=== PATIENT | female | born 1955 | race American Indian/Alaskan Native ===

== ENCOUNTER 2021-12-27 22:00 | Emergency (ER) | payer MEDICARE ==
--- NOTE | 2021-12-28 00:36 | Emergency Department Report ---
ED Psych HPI - General Chief Complaint: Psych Stated Complaint: HEALTH EVAL Time Seen by Provider: 12/27/21 23:23 Source: patient, EMS Mode of arrival: Stretcher - History of Present Illness Initial Comments: Patient is a 66-year-old female presenting to ED with complaint of auditory and visual hallucinations. Denies SI or HI. - Related Data Allergies Allergy/AdvReac Type Severity Reaction Status Date / Time No Known Allergies Allergy Unverified 12/27/21 23:34 ED Review of Systems ROS: Stated complaint: HEALTH EVAL Other details as noted in HPI Constitutional: denies: chills, fever Respiratory: denies: cough, shortness of breath, wheezing Cardiovascular: denies: chest pain, palpitations Endocrine: no symptoms reported Gastrointestinal: denies: abdominal pain, nausea, diarrhea Musculoskeletal: denies: back pain, joint swelling, arthralgia Skin: denies: rash, lesions Neurological: denies: headache, weakness, paresthesias Psychiatric: denies: anxiety, depression ED Past Medical Hx - Past Medical History Previous Medical History?: Yes Hx Psychiatric Treatment: Yes - Surgical History Past Surgical History?: No - Social History Smoking Status: Never Smoker Substance Use Type: None ED Physical Exam - General Limitations: No Limitations General appearance: alert, in no apparent distress - Head Head exam: Present: atraumatic, normocephalic - Respiratory Respiratory exam: Present: normal lung sounds bilaterally. Absent: respiratory distress - Cardiovascular Cardiovascular Exam: Present: regular rate, normal rhythm, normal heart sounds - GI/Abdominal GI/Abdominal exam: Present: soft. Absent: distended, tenderness - Rectal Rectal exam: Present: deferred - Neurological Exam Neurological exam: Present: alert, oriented X3 - Psychiatric Psychiatric exam: Present: normal mood. Absent: normal affect - Skin Skin exam: Present: warm, dry, intact, normal color ED Course Vital Signs 12/27/21 12/27/21 12/28/21 22:00 23:41 04:58 Temperature 98.7 F Pulse Rate 80 103 H Respiratory 18 16 Rate Blood Pressure 132/92 Blood Pressure 136/79 [Right] O2 Sat by Pulse 99 97 95 Oximetry ED Medical Decision Making - Lab Data Result diagrams: 12/28/21 02:21 12/28/21 02:21 - Medical Decision Making Labs reviewed. No major abnormalities noted. Will obtain mental health assessment in the morning. Critical care attestation.: If time is entered above; I have spent that time in minutes in the direct care of this critically ill patient, excluding procedure time. ED Disposition Clinical Impression: Hallucinations, visual, Auditory hallucinations Disposition: 30 STILL A PATIENT Is pt being admited?: No Condition: Stable
[2021-12-28 02:49] LABS: Eosinophils % (Auto) 0.1 % (0.0-4.3); Monocytes # (Auto) 0.7 K/mm3 (0.0-0.8); Monocytes % (Auto) 6.4 % (0.0-7.3)
[2021-12-28 03:05] LABS: Alanine Aminotransferase 18 units/L (7-56); Albumin 4.4 g/dL (3.9-5); BUN/Creatinine Ratio 13; Basophils % (Auto) 0.3 % (0.0-1.8); Blood Urea Nitrogen 10 mg/dL (7-17); Calcium 9.4 mg/dL (8.4-10.2); Hemolysis Index 24; Lymphocytes # (Auto) 1.5 K/mm3 (1.2-5.4); Lymphocytes % (Auto) 13.2 % (13.4-35.0); Mean Corpuscular HGB Conc 31 % (30-34); Mean Corpuscular Volume 61 fl (79-97); Platelet Count 61 K/mm3 (140-440); Red Blood Count 5.94 M/mm3 (3.65-5.03)
--- NOTE | 2021-12-28 09:13 | Consultation ---
History of Present Illness - Reason for Consult Consult date: 12/28/21 Reason for consult: psychisis - History of Present Psychiatric Illness The patient is a 66y/o female who presented to the ER for auditory and visual hallucinations. During my evaluation, the patient is lying on the floor staring at the ceiling. She is responding to internal stimuli. She does not acknowledge me. I start calling her name and asking her to get off the floor and go to a chair. The patient then starts shaking her head back and forth. I ask staff to come and get the patient off the floor. She starts hitting the floor with her fist yelling, "mother fuer" over and over. She would not respond to any questions. She also would not allow staff to remove her off the floor. REVIEW OF SYSTEMS Unable to assess MENTAL STATUS EXAMINATION Unable to assess ASSESSMENT: Delusional Disorder TREATMENT: 1013 Risperidone 0.25mg po BID Melatonin 5mg po qhs prn insomnia Geodon 10mg q4h prn agitation Risks, benefits and alternatives of medications discussed with the patient, questions answered and consent obtained from patient. PSYCHOTHERAPY: Supportive psychotherapy provided MEDICAL: Per primary team DELIRIUM PRECAUTIONS: Please re-orient patient frequently, keep lights on during the day, and minimize benzodiazepines and opiates as these medications could worsen patient's confusion. 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 FOLLOW-UP: Will follow Case staffed with Dr. Noé Graves Medications and Allergies Allergies Allergy/AdvReac Type Severity Reaction Status Date / Time No Known Allergies Allergy Unverified 12/27/21 23:34 Mental Status Exam - Vital signs Last Vital Signs Temp 98.7 F 12/27/21 22:00 Pulse 103 H 12/28/21 04:58 Resp 16 12/28/21 04:58 BP 136/79 12/28/21 04:58 Pulse Ox 95 12/28/21 04:58 Results Result Diagrams: 12/28/21 02:21 12/28/21 02:21 Abnormal lab results 12/28/21 12/28/21 12/28/21 Range/Units 02:21 02:21 02:21 RBC 5.94 H (3.65-5.03) M/mm3 MCV 61 L (79-97) fl MCH 19 L (28-32) pg RDW 18.0 H (13.2-15.2) % Plt Count 61 L (140-440) K/mm3 Lymph % (Auto) 13.2 L (13.4-35.0) % Seg Neutrophils % 80.0 H (40.0-70.0) % Seg Neutrophils # 8.8 H (1.8-7.7) K/mm3 Sodium 148 H (137-145) mmol/L Chloride 112.8 H (98-107) mmol/L Carbon Dioxide 20 L (22-30) mmol/L Glucose 138 H (65-100) mg/dL Salicylates < 0.3 L (2.8-20.0) mg/dL Acetaminophen (10.0-30.0) ug/mL 12/28/21 Range/Units 02:21 RBC (3.65-5.03) M/mm3 MCV (79-97) fl MCH (28-32) pg RDW (13.2-15.2) % Plt Count (140-440) K/mm3 Lymph % (Auto) (13.4-35.0) % Seg Neutrophils % (40.0-70.0) % Seg Neutrophils # (1.8-7.7) K/mm3 Sodium (137-145) mmol/L Chloride (98-107) mmol/L Carbon Dioxide (22-30) mmol/L Glucose (65-100) mg/dL Salicylates (2.8-20.0) mg/dL Acetaminophen 5.0 L (10.0-30.0) ug/mL All other labs normal.
[2021-12-28] MEDS: risperiDONE 0.25 MG TAB PO SCH ×3 (10:40→22:12)
--- NOTE | 2021-12-28 12:03 | Event Note ---
Date: 12/28/21 S: Patient refused medication this morning. Otherwise no other events reported overnight O: Vital Signs - 8 hr 12/28/21 12/28/21 04:58 10:27 Temperature 98.6 F Pulse Rate 103 H 89 Respiratory 16 18 Rate Blood Pressure 136/79 129/76 [Right] O2 Sat by Pulse 95 100 Oximetry A: Delusional disorder P: 1013/awaiting inpatient psych
[2021-12-28] MEDS ORDERED: WATER FOR INJ Sterile (PF) 10 ML ONE (15:39)
[2021-12-28] MEDS: ZIPRASIDONE MESYLATE 20 MG VIAL IM PRN (15:47)
[2021-12-28] MEDS ORDERED: MELATONIN 5 MG TAB PO PRN (22:00)
--- NOTE | 2021-12-29 10:14 | Progress Note ---
Subjective Date of service: 12/29/21 Principal diagnosis: Delusional Disorder Subjective Comment: The patient was seen today. She is acting bizarrely. She does not engage in the evaluation or acknowledge my presence. She is crawling on the floor making weird sounds. She crawls all the way to the trash can in the [place] and throws trash away. I call her name several times but she ignores me. REVIEW OF SYSTEMS Unable to assess MENTAL STATUS EXAMINATION Unable to assess ASSESSMENT: Delusional Disorder TREATMENT: 1013 Increase Risperidone 0.5mg po BID Melatonin 5mg po qhs prn insomnia Geodon 10mg q4h prn agitation Risks, benefits and alternatives of medications discussed with the patient, questions answered and consent obtained from patient. PSYCHOTHERAPY: Supportive psychotherapy provided MEDICAL: Per primary team DELIRIUM PRECAUTIONS: Please re-orient patient frequently, keep lights on during the day, and minimize benzodiazepines and opiates as these medications could worsen patient's confusion. 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 FOLLOW-UP: Will follow Case staffed with Dr. Noé Graves Medications and Allergies Allergies Allergy/AdvReac Type Severity Reaction Status Date / Time No Known Allergies Allergy Unverified 12/27/21 23:34 Active Meds: Active Medications Melatonin (Melatonin 5 Mg Tab) 5 mg PO QHS PRN PRN Reason: Sleep Risperidone (Risperidone 0.25 Mg Tab) 0.25 mg PO BID SANDRA Last Admin: 12/28/21 22:12 Dose: 0.25 mg Ziprasidone (Ziprasidone Mesylate 20 Mg Vial) 10 mg IM Q4H PRN PRN Reason: Agitation Last Admin: 12/28/21 15:47 Dose: 10 mg Results - Results Labs/Vitals: Laboratory Last Values WBC 11.0 K/mm3 (4.5-11.0) 12/28/21 02:21 RBC 5.94 M/mm3 (3.65-5.03) H 12/28/21 02:21 Hgb 11.0 gm/dl (10.1-14.3) 12/28/21 02:21 Hct 36.0 % (30.3-42.9) 12/28/21 02:21 MCV 61 fl (79-97) L 12/28/21 02:21 MCH 19 pg (28-32) L 12/28/21 02:21 MCHC 31 % (30-34) 12/28/21 02:21 RDW 18.0 % (13.2-15.2) H 12/28/21 02:21 Plt Count 61 K/mm3 (140-440) L 12/28/21 02:21 Lymph % (Auto) 13.2 % (13.4-35.0) L 12/28/21 02:21 [place] % (Auto) 6.4 % (0.0-7.3) 12/28/21 02:21 Eos % (Auto) 0.1 % (0.0-4.3) 12/28/21 02:21 Baso % (Auto) 0.3 % (0.0-1.8) 12/28/21 02:21 Lymph # (Auto) 1.5 K/mm3 (1.2-5.4) 12/28/21 02:21 [place] # (Auto) 0.7 K/mm3 (0.0-0.8) 12/28/21 02:21 Eos # (Auto) 0.0 K/mm3 (0.0-0.4) 12/28/21 02:21 Baso # (Auto) 0.0 K/mm3 (0.0-0.1) 12/28/21 02:21 Seg Neutrophils % 80.0 % (40.0-70.0) H 12/28/21 02:21 Seg Neutrophils # 8.8 K/mm3 (1.8-7.7) H 12/28/21 02:21 Sodium 148 mmol/L (137-145) H 12/28/21 02:21 Potassium 3.6 mmol/L (3.6-5.0) 12/28/21 02:21 Chloride 112.8 mmol/L (98-107) H 12/28/21 02:21 Carbon Dioxide 20 mmol/L (22-30) L 12/28/21 02:21 Anion Gap 19 mmol/L 12/28/21 02:21 BUN 10 mg/dL (7-17) 12/28/21 02:21 Creatinine 0.8 mg/dL (0.6-1.2) 12/28/21 02:21 Estimated GFR > 60 ml/min 12/28/21 02:21 BUN/Creatinine Ratio 13 % 12/28/21 02:21 Glucose 138 mg/dL (65-100) H 12/28/21 02:21 Calcium 9.4 mg/dL (8.4-10.2) 12/28/21 02:21 Total Bilirubin 0.80 mg/dL (0.1-1.2) 12/28/21 02:21 AST 27 units/L (5-40) 12/28/21 02:21 ALT 18 units/L (7-56) 12/28/21 02:21 Alkaline Phosphatase 116 units/L (35-129) 12/28/21 02:21 Total Protein 6.6 g/dL (6.3-8.2) 12/28/21 02:21 Albumin 4.4 g/dL (3.9-5) 12/28/21 02:21 Albumin/Globulin Ratio 2.0 % 12/28/21 02:21 TSH 0.836 mlU/mL (0.270-4.200) 12/28/21 02:21 Salicylates < 0.3 mg/dL (2.8-20.0) L 12/28/21 02:21 Acetaminophen 5.0 ug/mL (10.0-30.0) L 12/28/21 02:21 Plasma/Serum Alcohol < 0.01 % (0-0.07) 12/28/21 02:21 SARS-CoV-2 (PCR) Negative (Negative) 12/28/21 09:16 Last Vital Signs Temp 98.6 F 12/28/21 10:27 Pulse 113 H 12/28/21 22:09 Resp 16 12/28/21 22:09 BP 138/74 12/28/21 22:09 Pulse Ox 95 12/28/21 22:09
[2021-12-29] MEDS: ZIPRASIDONE MESYLATE 20 MG VIAL IM PRN (10:43)
[2021-12-29] MEDS: risperiDONE 0.25 MG TAB PO SCH ×3 (11:24→21:49)
--- NOTE | 2021-12-29 12:02 | Event Note ---
Date: 12/29/21 S: Patient was somewhat agitated this morning requiring medication O: Vital Signs - 8 hr 12/29/21 10:00 Temperature 98.8 F Pulse Rate 101 H Respiratory 18 Rate Blood Pressure 123/73 [Right] O2 Sat by Pulse 97 Oximetry A: Delusional disorder P: 1013/awaiting inpatient psych
[2021-12-30] MEDS: risperiDONE 0.25 MG TAB PO SCH (10:23)
--- NOTE | 2021-12-30 10:40 | Progress Note ---
Subjective - Reason for Consult Consult date: 12/30/21 Reason for consult: psychosis - Chief Complaint Chief complaint: The patient was seen today. She is more with it today. She is cooperative. The patient says she's doing a little better but states she's very depressed. She says she feels confused about everything. She says she sleeps terrible and doesn't feel good. She denies SI/HI. When asking about hallucinations, she says "at times." Awaiting UDS and UA to be admitted to [facility]. REVIEW OF SYSTEMS Unable to assess MENTAL STATUS EXAMINATION Unable to assess ASSESSMENT: Delusional Disorder TREATMENT: 1013 Start Trazodone 50mg po qhs Continue Risperidone 0.5mg po BID Melatonin 5mg po qhs prn insomnia Geodon 10mg q4h prn agitation Risks, benefits and alternatives of medications discussed with the patient, questions answered and consent obtained from patient. PSYCHOTHERAPY: Supportive psychotherapy provided MEDICAL: Per primary team DELIRIUM PRECAUTIONS: Please re-orient patient frequently, keep lights on during the day, and minimize benzodiazepines and opiates as these medications could worsen patient's confusion. 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 FOLLOW-UP: Will follow Case staffed with Dr. Pompa Mental Status Exam - Vital signs Last Vital Signs Temp 98.7 F 12/30/21 06:03 Pulse 90 12/29/21 21:28 Resp 16 12/29/21 21:28 BP 109/62 12/29/21 21:28 Pulse Ox 96 12/30/21 06:03
--- NOTE | 2021-12-30 10:40 | Event Note ---
Date: 12/30/21 VSS , NO DISTRESS , NO EVENTS OVERNIGHT , ASSESSED BY PSYCH AWAITING PLACEMENT
--- NOTE | 2021-12-30 10:43 | Progress Note ---
Subjective - Reason for Consult Consult date: 12/29/21 Reason for consult: psychosis - Chief Complaint Chief complaint: The patient was seen today. She is acting bizarrely. She does not engage in the evaluation or acknowledge my presence. She is crawling on the floor making weird sounds. She crawls all the way to the trash can in the [place] and throws trash away. I call her name several times but she ignores me. REVIEW OF SYSTEMS Unable to assess MENTAL STATUS EXAMINATION Unable to assess ASSESSMENT: Delusional Disorder TREATMENT: 1013 Increase Risperidone 0.5mg po BID Melatonin 5mg po qhs prn insomnia Geodon 10mg q4h prn agitation Risks, benefits and alternatives of medications discussed with the patient, questions answered and consent obtained from patient. PSYCHOTHERAPY: Supportive psychotherapy provided MEDICAL: Per primary team DELIRIUM PRECAUTIONS: Please re-orient patient frequently, keep lights on during the day, and minimize benzodiazepines and opiates as these medications could worsen patient's confusion. 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 FOLLOW-UP: Will follow Case staffed with Dr. Noé Graves Mental Status Exam - Vital signs Last Vital Signs Temp 98.7 F 12/30/21 06:03 Pulse 90 12/29/21 21:28 Resp 16 12/29/21 21:28 BP 109/62 12/29/21 21:28 Pulse Ox 96 12/30/21 06:03
[2021-12-30 14:17] VITALS: BP 132/74
[2021-12-30] MEDS ORDERED: traZODone 50 MG TAB PO SCH (22:00)
== END 2021-12-30 16:20 | disposition home or self-care (01) ==
LOC: EEVIPCON 22:00 → ED 22:00
DX: R44.1 Visual hallucinations (principal); R44.0 Auditory hallucinations; Z20.822 Contact with and (suspected) exposure to COVID-19
CPT/HCPCS: 36415; 80053; 84443; 85025; 96372; 99284; J3486; U0003; 80320; G0480